=== PATIENT | male | born 1990 ===

== ENCOUNTER 2017-08-18 04:26 | Emergency (ER) | payer SELFPAY ==
[2017-08-18 04:47] VITALS: BP 118/69; PULSE 74; RESP 18; TEMP 97.7; O2SAT 99
[2017-08-18] MEDS ORDERED: Fluorescein 1 mg Ophthalmic Strip OD ONE (04:57)
[2017-08-18] MEDS ORDERED: Tetracaine 0.5% Ophth 2 ML BOTTLE OD STA (04:57)
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
== END 2017-08-18 06:13 | disposition home or self-care (01) ==
LOC: ED 04:26
DX: S05.01XA Injury of conjunctiva and corneal abrasion without foreign body, right eye, initial encounter (principal); W50.1XXA Accidental kick by another person, initial encounter

== ENCOUNTER 2017-10-18 08:45 | Emergency (ER) | payer OTHER ==
[2017-10-18 08:52] VITALS: BP 118/65; PULSE 72; RESP 16; TEMP 97.7; O2SAT 96; BMI 29.8
[2017-10-18] MEDS ORDERED: Tetracaine 0.5% Ophth 2 ML BOTTLE OD STA (08:59)
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
== END 2017-10-18 09:40 | disposition home or self-care (01) ==
LOC: ED 08:45
DX: H10.9 Unspecified conjunctivitis (principal); S05.01XA Injury of conjunctiva and corneal abrasion without foreign body, right eye, initial encounter; X58.XXXA Exposure to other specified factors, initial encounter